=== PATIENT | female | born 1980 | race Two or more races ===

== ENCOUNTER 2022-12-23 12:39 | Emergency (ER) | payer OTHER ==
[~2022-12-23] VITALS: Ht 144.8 cm; Wt 68.0 kg
[2022-12-23] MEDS ORDERED: METFORMIN HCL1000 M2 PO (12:48)
[2022-12-23] MEDS ORDERED: [UNRECOGNIZED DRUG - REMARK] (12:50)
[2022-12-23 14:43] LABS: HEMATOCRIT 42.8 % (36.0-45.00); HEMOGLOBIN 13.7 g/dL (12.0-15.00); MEAN CELL VOLUME 83.8 fL (80.00-100.00); MEAN CORPUSCULAR HEMOGLOBIN 26.8 pg (27.00-32.0); MEAN CORPUSCULAR HGB CONC 31.9 g/dl (32.0-36.0); PLATELET COUNT 302 K/uL (150-450); RED BLOOD COUNT 5.11 M/uL (4.00-6.00); RED CELL DISTRIBUTION WIDTH 14.5 % (11.5-14.5)
[2022-12-23 15:02] LABS: PH,URINE 6.5 (5.0-8.0); URINE APPEARANCE Clear; URINE BILIRRUBIN Negative (NEGATIVE); URINE BLOOD Moderate; URINE COLOR Yellow; URINE LEUKOCYTE Negative; URINE NITRATE Negative; URINE PROTEIN Negative (NEGATIVE)
[2022-12-23 15:05] LABS: URINE BACTERIA 561.8 uL (0.0-1933); URINE EPITHELIAL CELLS 50.5 uL (0.0-38.8); URINE RBC 50.1 uL (0.0-20.8); URINE WBC 10.8 uL (0.0-23.2)
[2022-12-23 15:08] LABS: CALCIUM 8.9 mg/dL (8.5-10.1); CREATININE SERUM 0.72 mg/dL (0.55-1.02); GFR 89.71; POTASSIUM 3.83 mEq/L (3.5-5.1)
[2022-12-23 15:10] LABS: URINE GLUCOSE 100 MG/DL (NEGATIVE)
[2022-12-23] MEDS ORDERED: NAPROXEN500 MG PO (17:33)
== END 2022-12-23 17:44 | disposition home or self-care (01) ==
LOC: ER 12:39
PROVIDERS: General Practice
DX: R10.9 Unspecified abdominal pain (principal); E11.9 Type 2 diabetes mellitus without complications; Z79.84 Long term (current) use of oral hypoglycemic drugs; Z98.2 Presence of cerebrospinal fluid drainage device

== ENCOUNTER 2023-01-09 15:36 | Emergency (ER) | payer OTHER ==
[~2023-01-09] VITALS: Ht 144.8 cm; Wt 68.9 kg
[~2023-01-09 15:36] MED LIST: METFORMIN HCL1000 M2 PO; NAPROXEN500 MG PO; [UNRECOGNIZED DRUG - REMARK]
[2023-01-09] MEDS ORDERED: GLIPIZIDE10 MG PO (16:33)
[2023-01-09] MEDS ORDERED: SIMVASTATIN5 MG (16:33)
[2023-01-09 18:44] LABS: URINE APPEARANCE Clear; URINE BILIRRUBIN Negative (NEGATIVE); URINE BLOOD Moderate; URINE COLOR Yellow; URINE GLUCOSE Negative (NEGATIVE); URINE LEUKOCYTE Negative; URINE NITRATE Negative; URINE PROTEIN Negative (NEGATIVE); URINE UROBILINOGEN 0.2 E.U./dl
[2023-01-09 18:49] LABS: URINE BACTERIA 803.7 uL (0.0-1933); URINE EPITHELIAL CELLS 67.5 uL (0.0-38.8); URINE RBC 9.6 uL (0.0-20.8); URINE WBC 15.4 uL (0.0-23.2)
[2023-01-09 18:58] LABS: HEMATOCRIT 41.1 % (36.0-45.00); HEMOGLOBIN 13.2 g/dL (12.0-15.00); MEAN CELL VOLUME 83.2 fL (80.00-100.00); MEAN CORPUSCULAR HEMOGLOBIN 26.8 pg (27.00-32.0); MEAN CORPUSCULAR HGB CONC 32.2 g/dl (32.0-36.0); PLATELET COUNT 291 K/uL (150-450); RED BLOOD COUNT 4.95 M/uL (4.00-6.00); RED CELL DISTRIBUTION WIDTH 14.1 % (11.5-14.5)
[2023-01-09 19:11] LABS: ALBUMIN 3.4 gm/dL (3.4-5.0); ALKALINE PHOSPHATASE 109 U/L (50-136); ALT/SGPT 29 U/L (12-78); ANION GAP 14 (10.0-20.0); AST/SGOT 17 U/L (15-37); BILIRUBIN TOTAL 0.47 mg/dL (0.3-1.2); BLOOD UREA NITROGEN 7 mg/dL (7-18); BUN CREA RATIO 9 (7.0-25.0); CALCIUM 9.1 mg/dL (8.5-10.1); CARBON DIOXIDE 28 mEq/L (21-32); CHLORIDE 105 mmol/L (98-107); CREATININE SERUM 0.82 mg/dL (0.55-1.02); GFR 77.21; GLOBULINA 4.4 G/DL (2.4-3.5); GLUCOSE FASTING 85 mg/dL (65-100); OSMOLALITY SERUM 282 MOSM/KG (275-295); POTASSIUM 3.82 mEq/L (3.5-5.1); SODIUM 143 mmol/L (136-145); TOTAL PROTEIN 7.8 gm/dL (6.4-8.2)
[2023-01-09 19:13] LABS: HCG QUANTITATIVE < 1 mUI/mL (1-3)
== END 2023-01-09 22:55 | disposition home or self-care (01) ==
LOC: ER 15:36
PROVIDERS: General Practice
DX: G43.909 Migraine, unspecified, not intractable, without status migrainosus (principal); E11.9 Type 2 diabetes mellitus without complications; Z79.84 Long term (current) use of oral hypoglycemic drugs

== ENCOUNTER 2023-05-08 23:43 | Emergency (ER) | payer OTHER ==
[~2023-05-08] VITALS: Ht 121.9 cm; Wt 69.9 kg
[~2023-05-08 23:43] MED LIST changes: +GLIPIZIDE10 MG PO; +SIMVASTATIN5 MG
[2023-05-09] MEDS ORDERED: RINGERS SOLUTION,LACTATED 500 ML IV STA (02:17)
[2023-05-09] MEDS ORDERED: METOCLOPRAMIDE HCL 5 MG/ML VIAL IM STA (02:19)
[2023-05-09] MEDS ORDERED: FAMOTIDINE/PF 20 MG/2 ML VIAL IV PUSH STA (02:20)
[2023-05-09] MEDS ORDERED: MECLIZINE HCL 25 MG TABLET PO STA (02:32)
[2023-05-09 02:57] LABS: HEMATOCRIT 38.8 % (36.0-45.00); HEMOGLOBIN 12.9 g/dL (12.0-15.00); MEAN CELL VOLUME 82.4 fL (80.00-100.00); MEAN CORPUSCULAR HEMOGLOBIN 27.3 pg (27.00-32.0); MEAN CORPUSCULAR HGB CONC 33.2 g/dl (32.0-36.0); PLATELET COUNT 259 K/uL (150-450); RED BLOOD COUNT 4.71 M/uL (4.00-6.00); RED CELL DISTRIBUTION WIDTH 14.2 % (11.5-14.5)
[2023-05-09 03:13] LABS: CREATININE SERUM 0.88 mg/dL (0.55-1.02); GFR 70.81; POTASSIUM 3.66 mEq/L (3.5-5.1)
== END 2023-05-09 04:37 | disposition home or self-care (01) ==
LOC: ER 23:43
DX: E11.649 Type 2 diabetes mellitus with hypoglycemia without coma (principal); Z79.84 Long term (current) use of oral hypoglycemic drugs

== ENCOUNTER 2023-06-13 01:21 | Emergency (ER) | payer OTHER ==
[~2023-06-13] VITALS: Ht 144.8 cm; Wt 65.8 kg
[2023-06-13] MEDS ORDERED: MEPERIDINE HCL/PF 25 MG/ML VIAL IM ONE (02:15)
[2023-06-13] MEDS ORDERED: METHYLPREDNISOLONE SOD SUCC 125 MG VIAL IV ONE (02:15)
[2023-06-13] MEDS ORDERED: ONDANSETRON HCL 2 MG/ML VIAL IV ONE (02:15)
[2023-06-13] MEDS ORDERED: BUTALB/ACETAMINOPHEN/CAFFEINE 1 TAB TABLET PO ONE (02:15)
[2023-06-13] MEDS ORDERED: KETOROLAC TROMETHAMINE 30 MG VIAL IV ONE (03:45)
[2023-06-13 04:27] LABS: INR 1.01; PARTIAL THROMBOPLASTIN TIME 21.3 SECONDS (22.0-34.0); PROTHROMBIN TIME 10.6 SECONDS (9.0-11.5)
[2023-06-13 05:30] LABS: HEMATOCRIT 38.8 % (36.0-45.00); HEMOGLOBIN 13.1 g/dL (12.0-15.00); MEAN CELL VOLUME 80.7 fL (80.00-100.00); MEAN CORPUSCULAR HEMOGLOBIN 27.3 pg (27.00-32.0); MEAN CORPUSCULAR HGB CONC 33.9 g/dl (32.0-36.0); PLATELET COUNT 242 K/uL (150-450); RED BLOOD COUNT 4.81 M/uL (4.00-6.00); RED CELL DISTRIBUTION WIDTH 14.3 % (11.5-14.5)
[2023-06-13 05:42] LABS: ALBUMIN 3.5 gm/dL (3.4-5.0); BILIRUBIN TOTAL 0.82 mg/dL (0.3-1.2); CALCIUM 8.9 mg/dL (8.5-10.1); CREATININE SERUM 0.75 mg/dL (0.55-1.02); GFR 85.16; GLOBULINA 3.9 G/DL (2.4-3.5); POTASSIUM 4.43 mEq/L (3.5-5.1); TOTAL PROTEIN 7.4 gm/dL (6.4-8.2)
[2023-06-13] MEDS ORDERED: SUMATRIPTAN SUCCINATE 6 MG/0.5 ML VIAL SUBCUTANEO ONE (06:00)
[2023-06-13] MEDS ORDERED: MORPHINE SULFATE 4 MG/ML VIAL IV ONE (07:15)
== END 2023-06-13 08:24 | disposition home or self-care (01) ==
LOC: ER 01:21
PROVIDERS: General Practice
DX: G43.909 Migraine, unspecified, not intractable, without status migrainosus (principal)

== ENCOUNTER → 2023-12-23 | Emergency (ER) | payer OTHER ==
[~2023-12-23] VITALS: Ht 149.9 cm; Wt 63.5 kg
[~2023-12-23] MED LIST changes: +SINGULAIR 5MG5 MG PO
== END | disposition home or self-care (01) ==
LOC: ER 18:04
DX: R42 Dizziness and giddiness (principal); E11.9 Type 2 diabetes mellitus without complications; Z79.84 Long term (current) use of oral hypoglycemic drugs

== ENCOUNTER 2024-01-08 15:37 | Emergency (ER) | payer OTHER ==
[~2024-01-08] VITALS: Ht 144.8 cm; Wt 70.8 kg
[2024-01-08] MEDS ORDERED: KETOROLAC TROMETHAMINE 60 MG VIAL IM STA (17:40)
[2024-01-08] MEDS ORDERED: ORPHENADRINE CITRATE 30 MG/ML AMPUL IM STA (17:42)
[2024-01-08] MEDS ORDERED: DEXAMETHASONE SODIUM PHOSPHATE 4 MG/ML VIAL IM STA (17:43)
[2024-01-08] MEDS ORDERED: OxyCODONE HCL/APAP UD (PERCOCET) PO STA (17:43)
== END 2024-01-08 18:32 | disposition home or self-care (01) ==
LOC: ER 15:38
DX: M54.16 Radiculopathy, lumbar region (principal); E11.9 Type 2 diabetes mellitus without complications; Z79.84 Long term (current) use of oral hypoglycemic drugs